=== PATIENT | female | born 1980 | race Caucasian/White ===

== ENCOUNTER 2016-10-18 13:43 | Emergency (ER) | payer OTHER ==
[~2016-10-18 13:43] MED LIST: BENTYL20 MG PO; FLEXERIL10 MG PO; NO MEDICATIONS; PERCOCET5/325 PO; PRILOSEC40 MG PO; RANITIDINE HCL150 M1 PO
[2016-10-18] MEDS ORDERED: BIRTH CONTROL PILL (13:55)
== END 2016-10-18 14:48 | disposition home or self-care (01) ==
LOC: SED 13:43
DX: S33.5XXA Sprain of ligaments of lumbar spine, initial encounter (principal); S13.4XXA Sprain of ligaments of cervical spine, initial encounter; V43.62XA Car passenger injured in collision with other type car in traffic accident, initial encounter; Y92.410 Unspecified street and highway as the place of occurrence of the external cause
CPT/HCPCS: 99283